=== PATIENT | male | born 1965 | race Caucasian/White ===

== ENCOUNTER → 2018-11-17 | Day surgery (SDC) | payer OTHER ==
[~2018-11-17] MED LIST: AMLODIPINE-BEN1 EAC5 PO; ETHYL CHLORIDE MIST SPRAY 3.5OZ CAN TP ONE; GLIMEPIRIDE2 MG PO; LIDOCAINE HCL 2% LOCAL INJ 5 ML SDV VIAL INJ ONE; MIDAZOLAM HCL 5MG/ML 2ML VIAL ONE; ONDANSETRON HCL INJ 2MG/ML 2ML 2 MG/ML VIAL ONE; OR PHACO EYE KIT ONE; PREOP PHACO EYE KIT ONE; PROPOFOL IV EMULSION 10 MG/ML 20 ML VIAL ONE; SEVOFLURANE INHAL SOLN 250 ML PEN BTL ONE; prostate med PO
--- OUTSIDE RECORDS SUMMARY | 2018-11-17 09:20 | XMS REPORT | Encounter Summary ---
Author Organization Unknown Address [address] [place] [address] Phone [phone] Care Team Providers Care Benefits Analyst Name Role Phone Dr. Trisha Hernandez 3 [phone] Reason for Visit Benign essential hypertension; weight loss Instructions 1. Type 2 diabetes mellitus urinalysis, dipstick metformin 500 mg tablet diabetic nutrition education referral 2. Benign essential hypertension 3. Neck pain cyclobenzaprine 10 mg tablet 4. Anxiety alprazolam 0.5 mg tablet 5. Body mass index 25-29 - overweight learning about healthy weight Discussion Note: None recorded. Plan of Care Reminders Provider Appointments Est Patient 10/27/2018 9:00AM Charles Perera MD Lab Urinalysis, Dipstick 10/26/2018 [facility] ([facility] Diabetic Nutrition Education Referral 10/26/2018 Roxi Kumar RN (Charlie) (Accounting/Finance Tutor) Procedures None recorded. Surgeries None recorded. Imaging None recorded. Medications Name Start Date alprazolam 0.5 mg tablet TAKE 1/2 TO 1 TABLET BY MOUTH EVERY 12 HOURS NEEDED FOR ANXIETY amlodipine 5 mg-benazepril 20 mg capsule Take 1 capsule every day by oral route. Cialis 5 mg tablet TAKE 1 TABLET BY MOUTH EVERY DAY cyclobenzaprine 10 mg tablet TAKE 1 TABLET BY MOUTH EVERY NIGHT AT BEDTIME NEEDED FOR SPASM metformin 500 mg tablet Take 1 tablet twice a day by oral route. zolpidem 10 mg tablet take one tablet qhs prn insomnia Medications Administered None recorded. Vitals Height Weight BMI Blood Pressure 5 ft 5.5 in 163 lbs 26.7 kg/m2 94/72 mm[Hg] Lab Results None recorded. 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 Social History Smoking Status Never Smoker Past Encounters 10/26/2018 Type 2 Diabetes Mellitus; Benign Essential Hypertension; Neck Pain; Anxiety; Body Mass Index 25-29 - Overweight Charles Perera MD: [address] [facility], [address], [place] [address], Ph. 10/01/2018 Benign Essential Hypertension; Abdominal Pain; Anxiety; Insomnia; Neck Pain; Body Mass Index 25-29 - Overweight; Screening for Malignant Neoplasm of Prostate JAVIER Marcos: [address] [facility], [address], [place] [address], Ph. History of Present Illness Note:Concerned about recent weight loss, associated increase in urination and thirst. No NVD. Decrease in appetite. Brings recent labs, elevated BS and HgA1c. Review of Systems Comprehensive General Adult ROS, Diabetes F/U ROS Reported By: Patient Constitutional: Constitutional: weight loss (15 lbs) Cardiovascular: Cardiovascular: no chest pain, no SOB, no palpitations Respiratory: Respiratory: no wheezing, no shortness of breath Endocrine: Endocrine: no fatigue Extremities: Extremities: no edema Physical Exam Cardiology Exam Reported By: Patient Constitutional: General Appearance: well-nourished, well-developed. Level of Distress: comfortable Psychiatric: Mental Status: alert, normal affect. Orientation: oriented to time, place, and person. Insight: good judgment Eyes: Lids and Conjunctivae: non-injected, no discharge, no pallor Neck: Neck: supple, no masses. Carotid Arteries: no bruits, no thrills. Cervical Lymph Nodes: non tender, not enlarged, no palpable nodes. Thyroid: not enlarged, non tender Lungs: Respiratory Effort: unlabored. Auscultation: clear, no wheezing Cardiovascular: Rate And Rhythm: regular. Heart Sounds: normal S1, no rub, no gallop. Extremities: no cyanosis, no edema Skin: Inspection and Palpation: warm and dry. Nails: no clubbing
--- OUTSIDE RECORDS SUMMARY | 2018-11-17 09:20 | XMS REPORT | Encounter Summary ---
Author Organization Unknown Address [address] [place] [address] Phone [phone] Care Team Providers Care Statistical Analyst Name Role Phone Dr. Trisha Hernandez 3 [phone] Reason for Visit shortness of breath; nausea; sleep problems Instructions 1. Type 2 diabetes mellitus CMP, serum or plasma 2. Fatigue CBC w/ auto diff 3. Thyroid function tests abnormal T4, free, serum T3, free, serum or plasma TSH, serum or plasma 4. Screening for malignant neoplasm of colon colon cancer screening, stool 5. Abdominal pain US, abdomen, complete 6. Degeneration of cervical intervertebral disc physical therapy referral Tylenol-Codeine #3 300 mg-30 mg tablet Zanaflex 4 mg tablet Discussion Note: None recorded. Patient educational handouts: No information available. Plan of Care Reminders Provider Appointments None recorded. Lab CMP, Serum or Plasma 10/29/2018 [facility] CBC W/ Auto Diff 10/29/2018 [facility] T4, Free, Serum 10/29/2018 [facility] T3, Free, Serum or Plasma 10/29/2018 [facility] TSH, Serum or Plasma 10/29/2018 [facility] Colon Cancer Screening, Stool 10/29/2018 [facility] (Cologuard Orders Only) Referral Physical Therapy Referral 10/29/2018 [facility] Procedures None recorded. Surgeries None recorded. Imaging US, Abdomen, Complete 10/29/2018 [facility] Medications Name Start Date alprazolam 0.5 mg [...] tablet twice a day by oral route. Tylenol-Codeine #3 300 mg-30 mg tablet Take 1 tablet every 6-8 hours by oral route as needed. Zanaflex 4 mg tablet Take 1 tablet 3 times a day by oral route as needed. zolpidem 10 mg tablet take one tablet qhs prn insomnia Medications Administered None recorded. Vitals Height Blood Pressure 5 ft 5.5 in 100/88 mm[Hg] Lab Results Date Name Specimen Result Interpretation Description Value Range Status Address Urinalysis, Dipstick Color Color light yellow [facility] ([facility]: [address], [place] Color Appearance clear [facility] ([facility]: [address], [place] Color Glucose negative [facility] ([facility]: [address], [place] Color Bilirubin negative [facility] ([facility]: [address], [place] Color Ketones negative [facility] ([facility]: [address], [place] Color Specific [place] 1.005 [facility] ([facility]: [address], [place] Color Blood negative [facility] ([facility]: [address], [place] Color PH 5.0 [facility] ([facility]: [address], [place] Color Protein negative [facility] ([facility]: [address], [place] Color Urobilinogen 0.2 [facility] ([facility]: [address], [place] Color Nitrites negative [facility] ([facility]: [address], [place] Color Leukocytes negative [facility] ([facility]: [address], [place] Allergies Code Code System Name Reaction Severity Status Onset NKDA Problems Name Status Onset Date Source Benign Essential Hypertension Active 06/12/2012 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 Social History Smoking Status Never Smoker Past Encounters 10/29/2018 Type 2 Diabetes Mellitus; Fatigue; Thyroid Function Tests Abnormal; Screening for Malignant Neoplasm of Colon; Abdominal Pain; Degeneration of Cervical Intervertebral Disc Jameson Angeles MD: [address] [facility], [address], [place] [address], Ph. 10/26/2018 Type 2 Diabetes Mellitus; Benign Essential Hypertension; Neck Pain; Anxiety; Body Mass Index 25-29 - Overweight Charles Perera MD: [address] [facility], [address], [place] [address], Ph. 10/01/2018 Benign Essential Hypertension; Abdominal Pain; Anxiety; Insomnia; Neck Pain; Body Mass Index 25-29 - Overweight; Screening for Malignant Neoplasm of Prostate JAVIER Marcos: [address] [facility], [address], [place] [address], Ph. History of Present Illness Note:3-4 am woke up nausea/vomiting - none since - constipated 2 weeks, now some diarrhea; no abdominal pain<div>
</div><div>lost 4# past 3 days</div><div>< br></div><div>no fever/chills</div><div>
</div><div>labs reviewed - Creatinine 1.7; metformin started 2 days ago; A1c 6.7; Glucose 160s; Tsh 4.5< /div><div>
</div><div>not started checking glucose</div><div>
</div><div>1 year lost appetite</div><div>
</div><div>lost 60# past 2 years ago - exercising; not activly trying to lose weight - loss of appetite</div><div>
< /div><div>stress with good friend committed suicide 2 weeks ago</div><div>
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 Physical Exam General Adult Exam (male) Reported By: Patient Constitutional: General Appearance: healthy-appearing. Level of Distress: NAD Psychiatric: Mental Status: active and alert, normal affect Lungs: Respiratory effort: no dyspnea. Auscultation: breath sounds normal Cardiovascular: Heart Auscultation: RRR, normal S1, normal S2. Neck vessels: no carotid bruits Abdomen: Inspection and Palpation: soft, non-distended, no CVA tenderness, LLQ tenderness, RLQ tenderness
--- OUTSIDE RECORDS SUMMARY | 2018-11-17 09:20 | XMS REPORT | Encounter Summary ---
Author Organization Unknown Address [address] [place] [address] Phone [phone] Care Team Providers Care Real Estate Assistant Name Role Phone Dr. Trisha Hernandez 3 [phone] Reason for Visit pre-op evaluation Instructions 1. Pre-surgery evaluation electrocardiogram 2. Insomnia eszopiclone 2 mg tablet 3. Anxiety alprazolam 0.5 mg tablet Discussion Note: None recorded. Patient educational handouts: No information available. Plan of Care Reminders Provider Appointments Est Patient 11/16/2018 12:15PM Charles Perera MD Lab None recorded. Referral None recorded. Procedures None recorded. Surgeries None recorded. Imaging Electrocardiogram 11/10/2018 [facility] ([facility]) [facility] Medications Name Start Date alprazolam 0.5 mg tablet TAKE 1/2 TO 1 TABLET BY MOUTH EVERY 12 HOURS NEEDED FOR ANXIETY amlodipine 5 mg-benazepril 20 mg capsule Take 1 capsule every day by oral route. Cialis 5 mg tablet TAKE 1 TABLET BY MOUTH EVERY DAY cyclobenzaprine 10 mg tablet TAKE 1 TABLET BY MOUTH EVERY NIGHT AT BEDTIME NEEDED FOR SPASM eszopiclone 2 mg tablet TAKE 1 TABLET BY MOUTH EVERY DAY AT BEDTIME NEEDED glimepiride 2 mg tablet Take 1 tablet every day by oral route. tamsulosin 0.4 mg capsule Take 1 capsule every day by oral route. Zanaflex 4 mg tablet Take 1 tablet 3 times a day by oral route as needed. Medications Administered None recorded. Vitals Height Weight BMI Blood Pressure 5 ft 5.5 in 160 lbs 26.2 kg/m2 104/82 mm[Hg] Lab Results Date Name Specimen Result Interpretation Description Value Range Status Address 10/29/2018 TSH, Serum or Plasma Normal Tsh 2.65 mIU/L 0.40-4.50 mIU/L [facility]: [address] [facility] [address], [place] 10/29/2018 CBC W/ Auto Diff High White Blood Cell Count 12.4 thousand/uL 3.8-10.8 thousand/uL [facility]: [address] Normal Red Blood Cell Count 4.37 million/uL 4.20-5.80 million/uL [facility]: [address] Low Hemoglobin 12.6 g/dL 13.2-17.1 g/dL [facility]: [address] [place] Low Hematocrit 35.7 % 38.5-50.0 % [facility]: [address] [place] Normal Mcv 81.7 fL 80.0-100.0 fL [facility]: [address] [place] Normal Mch 28.8 pg 27.0-33.0 pg [facility]: [address] [place] Normal Mchc 35.3 g/dL 32.0-36.0 g/dL [facility]: [address] [place] Normal Rdw 13.7 % 11.0-15.0 % [facility]: [address] High Platelet Count 447 thousand/uL 140-400 thousand/uL [facility]: [address] [place] Normal Mpv 10.5 fL 7.5-12.5 fL [facility]: [address] [place] Normal Absolute Neutrophils 6820 cells/uL 0078-2754 cells/uL [facility]: [address] [place] High Absolute Lymphocytes 4402 cells/uL 850-3900 cells/uL [facility]: [address] [place] Normal Absolute Monocytes 918 cells/uL 200-950 cells/uL [facility]: [address] [place] Normal Absolute Eosinophils 186 cells/uL 15-500 cells/uL [facility]: [address] [place] Normal Absolute Basophils 74 cells/uL 0-200 cells/uL [facility]: [address] [place] Normal Neutrophils 55 % [facility]: [address] [place] Normal Lymphocytes 35.5 % [facility]: [address] [place] Normal Monocytes 7.4 % [facility]: [address], [place] Normal Eosinophils 1.5 % [facility]: [address], [place] Normal Basophils 0.6 % [facility]: [address] [place] 10/29/2018 CMP, Serum or Plasma High Glucose 129 mg/dL 65-99 mg/dL [facility]: [address], [place] Normal Urea Nitrogen (BUN) 24 mg/dL 7-25 mg/dL [facility]: [address] [place] High Creatinine 1.83 mg/dL 0.70-1.33 mg/dL [facility]: [address] [place] Low eGFR Non-afr. [place] Islander 42 mL/min/1.73m2 > or=60 mL/min/1.73m2 [facility]: [address] [place] Low eGFR 48 mL/min/1.73m2 > or=60 mL/min/1.73m2 [facility]: [address] [place] Normal BUN/creatinine Ratio 13 (calc) 6-22 (calc) [facility] [address] [facility] Sodium 140 mmol/L 135-146 mmol/L [facility]: [address] [facility] Normal Potassium 4.9 mmol/L 3.5-5.3 mmol/L [facility]: [address] [facility] Normal Chloride 102 mmol/L 98-110 mmol/L [facility]: [address] [facility] Normal Carbon Dioxide 23 mmol/L 20-32 mmol/L [facility]: [address] [place] High Calcium 10.6 mg/dL 8.6-10.3 mg/dL [facility]: [address] [facility] Normal Protein, Total 7.5 g/dL 6.1-8.1 g/dL [facility]: [address] [facility] Normal Albumin 4.9 g/dL 3.6-5.1 g/dL [facility]: [address], [place] Normal Globulin 2.6 g/dL (calc) 1.9-3.7 g/dL (calc) [facility]: [address], [place] Normal Albumin/globulin Ratio 1.9 (calc) 1.0-2.5 (calc) [facility]: [address] Normal Bilirubin, Total 0.7 mg/dL 0.2-1.2 mg/dL [facility]: [address] [facility], [place] Normal Alkaline Phosphatase 77 U/L 40-115 U/L [facility]: [address] [place] [address], [place] Low Ast 9 U/L 10-35 U/L [facility]: [address] [place] [address], [place] Low Alt 6 U/L 9-46 U/L [facility]: [address] [place] [address], [place] 10/29/2018 T4, Free, Serum Normal T4, Free 1.2 NG/dL 0.8-1.8 NG/dL [facility]: [address] [facility], [place] 10/29/2018 T3, Free, Serum or Plasma Normal T3, Free 3.1 pg/mL 2.3- 4.2 pg/mL [facility]: [address] [place] [address], [place] Urinalysis, Dipstick Color Color light yellow [facility] ([facility]: [address] [facility] [address], [place] Color Appearance clear [facility] ([facility]) [facility]: [address] [place] Color Glucose negative [facility]: [address], [place] Color Bilirubin negative [facility]: [address] [facility] [address], [place] Color Ketones negative [facility]: [address] [facility] [address], [place] Color Specific [place] 1.005 [facility] ([facility]: [address] [facility] [address], [place] Color Blood negative [facility]: [address] [facility] [address], [place] Color PH 5.0 [facility]: [address] [facility] [address], [place] Color Protein negative [facility]: [address] [facility] [address], [place] Color Urobilinogen 0.2 [facility]: [address] [facility] [address], [place] Color Nitrites negative [facility] ([facility]) [facility]: [address] [facility] [address], [place] Color Leukocytes negative [facility] ([facility]) [facility]: [address] [facility] [address], [place] Allergies Code Code System Name Reaction Severity Status Onset NKDA Problems Name Status Onset Date Source Benign Essential Hypertension Active 06/12/2012 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 History Insomnia Active 11/23/2013 History Anxiety State Active 01/21/2014 History Overweight Active 08/18/2018 Type 2 Diabetes Mellitus Active 10/29/2018 Degeneration of Intervertebral Disc Active 10/29/2018 Diabetic Renal Disease Active 10/30/2018 Chronic Kidney Disease Stage 3 Active 10/30/2018 Cataract Active 11/10/2018 Procedures Date Name Performed by 07/07/2014 Back Surgery Information not available 10/23/2018 MRI, Cervical Spine, W/o Contrast [facility] [address] [facility] [address] [place], [place] [phone] (Work Place) 10/29/2018 US, Abdomen, [facility] [address] [place], [place] [phone] (Work Place) 11/10/2018 Electrocardiogram [facility] ([facility]) [facility] [address] [facility] [address] [place] [address] (Work Place) Vaccine List None recorded. Social History Smoking Status Never Smoker Past Encounters 11/10/2018 Pre-surgery Evaluation; Insomnia; Anxiety Loren Little MD: [address] [facility], [facility] [address], [place] [address], Ph. 10/29/2018 Type 2 Diabetes Mellitus; Fatigue; Thyroid Function Tests Abnormal; Screening for Malignant Neoplasm of Colon; Abdominal Pain; Degeneration of Cervical Intervertebral Disc Jameson Angeles MD: [address] [facility], [facility] [address], [place] [address], Ph. 10/26/2018 Type 2 Diabetes Mellitus; Benign Essential Hypertension; Neck Pain; Anxiety; Body Mass Index 25-29 - Overweight Charles Perera MD: [address] [facility], [address], [place] [address], Ph. History of Present Illness Note:Patient is here for pre-op for cataract surgery that is scheduled for 11/17/18. 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 Patient is fairly active, but hasn't been so recently due to vision changes. Patient denies having any chest pain and he does have some problems with breathing when he has panic attacks. Last EKG was 10 years ago.<div>
< /div><div>He states that his anxiety has been worsening and he would like to switch from Ambien to Lunesta. He states that he has tried Zoloft in the past which didn't help.</div> Review of Systems Comprehensive General Adult ROS Reported By: Patient Constitutional: Constitutional: no fever, no night sweats Cardiovascular: Cardiovascular: no chest pain, no palpitations Respiratory: Respiratory: no cough, no shortness of breath Gastrointestinal: Gastrointestinal: no abdominal pain, no nausea, no vomiting Musculoskeletal: Musculoskeletal: no swelling in the extremities Neurologic: Neurologic: no dizziness, no headaches Endocrine: Endocrine: no fatigue Physical Exam General Adult Exam (male) Reported By: Patient Constitutional: General Appearance: healthy-appearing, well-nourished. Level of Distress: NAD Psychiatric: Mental Status: active and alert, normal affect Head: Head: normocephalic Eyes: Lids and Conjunctivae: non-injected ENMT: Ears: no lesions on external ear. Hearing: no hearing loss. Nose: no lesions on external nose Neck: Neck: supple Lungs: Respiratory effort: no dyspnea. Auscultation: breath sounds normal Cardiovascular: Heart Auscultation: RRR, normal S1, normal S2 Neurologic: Gait and Station: normal gait
--- OUTSIDE RECORDS SUMMARY | 2018-11-17 09:20 | XMS REPORT | Encounter Summary ---
Author Organization Unknown Address [address] [place] [address] Phone [phone] Care Team Providers Care Market Master Name Role Phone Dr. Trisha Hernandez 3 [phone] Reason for Visit constipation Instructions 1. Benign essential hypertension amlodipine 5 mg-benazepril 20 mg capsule 2. Abdominal pain 3. Anxiety alprazolam 0.5 mg tablet 4. Insomnia eszopiclone 2 mg tablet 5. Neck pain cyclobenzaprine 10 mg tablet physical therapy referral Tylenol-Codeine #3 300 mg-30 mg tablet 6. Body mass index 25-29 - overweight learning about healthy weight 7. Screening for malignant neoplasm of prostate Discussion Note: None recorded. Plan of Care Reminders Provider Appointments Est Patient 10/19/2018 10:15AM Charles Perera MD Lab None recorded. Referral Physical Therapy Referral 10/01/2018 Procedures None recorded. Surgeries None recorded. Imaging [...] BY MOUTH EVERY DAY AT BEDTIME NEEDED Mobic 7.5 mg tablet Take 1 tablet every day by oral route as needed. tramadol 50 mg tablet Take 1 tablet every 6 hours by oral route. prn pain. do not combine with alcohol or sleeping pills Tylenol-Codeine #3 300 mg-30 mg tablet Take 1 tablet every 6-8 hours by oral route as needed. zolpidem 10 mg tablet take one tablet qhs prn insomnia Medications Administered None recorded. Vitals Height Weight BMI Blood Pressure 5 ft 5.5 in 163 lbs 26.7 kg/m2 (1) 150/100 mm[Hg] (2) 150/102 mm[Hg] Lab Results None recorded. 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 Social History Smoking Status Never Smoker Past Encounters 10/01/2018 Benign Essential Hypertension; Abdominal Pain; Anxiety; Insomnia; Neck Pain; Body Mass Index 25-29 - Overweight; Screening for Malignant Neoplasm of Prostate JAVIER Marcos: [address] [facility], [address], [place] [address], Ph. History of Present Illness Note:Pt c/o persistent neck pain radiating down his arm. Pt was put on meloxicam and Flexeril. Those meds haven't been working. Hasn't done MRI which was ordered a month ago. <div>Pt c/o constipation, took Senokot OTC which helped. Has been having normal BM's since then but the abdomen feels raw. </div><div> Elevated BP. Used to be on BP meds, was taken off them because it was great. Now it's been running high again. </div><div>Pt asking for refills on Xanax and Ambien or Lunesta. </div><div>Pt also asking for refills on pain meds for his neck. </div> Review of Systems Comprehensive General Adult ROS Reported By: Patient Constitutional: Constitutional: no fever Cardiovascular: Cardiovascular: no chest pain, no palpitations, no lightheadedness Respiratory: Respiratory: no shortness of breath Gastrointestinal: Gastrointestinal: no abdominal pain, no nausea, no vomiting, no constipation, no diarrhea Musculoskeletal: Musculoskeletal: no swelling in the extremities Neurologic: Neurologic: no numbness, no dizziness, no headaches Notes: denies ROS except for what's noted in HPI Physical Exam General Adult Exam (male) Reported By: Patient Constitutional: General Appearance: healthy-appearing. Level of Distress: NAD Psychiatric: Orientation: to time, to place, to person Lungs: Respiratory effort: no dyspnea. Auscultation: breath sounds normal Cardiovascular: Heart Auscultation: RRR, normal S1, normal S2 Abdomen: Bowel Sounds: normal. Inspection and Palpation: soft, non-distended, no tenderness, no CVA tenderness Neurologic: Cranial Nerves: grossly intact
--- OUTSIDE RECORDS SUMMARY | 2018-11-17 09:20 | XMS REPORT | Encounter Summary ---
Author Organization Unknown Address [address] [place] [address] Phone [phone] Care Team Providers Care Floor Cashier Name Role Phone Dr. Charles Perera 3 [phone] Reason for Visit neck pain; shoulder pain Instructions 1. Neck pain XR, cervical spine, 2 or 3 view cyclobenzaprine 10 mg tablet Mobic 7.5 mg tablet 2. Cervical radiculopathy MRI, cervical spine, w/o contrast 3. Body mass index 25-29 - overweight learning about healthy weight 4. Anxiety alprazolam 0.5 mg tablet Discussion Note: None recorded. Plan of Care Reminders Provider Appointments Est Patient 09/07/2018 11:00AM Charles Perera MD Lab None recorded. Referral None recorded. Procedures None recorded. Surgeries None recorded. Imaging XR, Cervical Spine, 2 or 3 View 08/25/2018 [facility] MRI, Cervical Spine, W/o Contrast 08/25/2018 [facility] Medications Name Start Date alprazolam 0.5 mg tablet TAKE 1/2 TO 1 TABLET BY MOUTH EVERY 12 HOURS NEEDED FOR ANXIETY Cialis 5 mg tablet TAKE 1 TABLET BY MOUTH EVERY DAY cyclobenzaprine 10 mg tablet take one tablet qhs prn spasm eszopiclone 2 mg tablet TAKE 1 TABLET BY MOUTH EVERY DAY AT BEDTIME NEEDED Medrol (Chuy) 4 mg tablets in a dose pack Take as directed per instructions in pack Mobic 7.5 mg tablet Take 1 tablet every day by oral route as needed. zolpidem 10 mg tablet take one tablet qhs prn insomnia Medications Administered None recorded. Vitals Height Weight BMI Blood Pressure 5 ft 5.5 in 172.2 lbs 28.2 kg/m2 (1) 160/102 mm[Hg] (2) 148/102 mm[Hg] Lab Results None recorded. 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 Radiology [facility] [address] [place] [address] (Work Place) 08/25/2018 MRI, Cervical Spine, W/o Contrast [facility] [address] [place], [place] [id number] (Work Place) Vaccine List None recorded. Social History Smoking Status Never Smoker Past Encounters 08/25/2018 Neck Pain; Cervical Radiculopathy; Body Mass Index 25-29 - Overweight; Anxiety Gurmeet Prince MD: [address] [place] [address], [address], [place] [address], Ph. 08/18/2018 Shoulder Pain; Insomnia; Overweight Loren Little MD: [address] [place] [address], [address], [place] [address], Ph. History of Present Illness Note:here for follow up on neck pain going down left arm<div>sx for 3 weeks</div ><div>no injury</div><div>pain with movement</div><div>no cp, no sob, no fever, no rash</div><div>no association with exertion</div> Review of Systems Comprehensive General Adult ROS Reported By: Patient Constitutional: Constitutional: no fever, no night sweats Cardiovascular: Cardiovascular: no chest pain, no palpitations Respiratory: Respiratory: no cough, no shortness of breath Gastrointestinal: Gastrointestinal: no abdominal pain, no nausea, no vomiting Musculoskeletal: Musculoskeletal: no swelling in the extremities, arthralgias/joint pain Neurologic: Neurologic: no weakness, no numbness, no dizziness, no headaches, no tremor Endocrine: Endocrine: no fatigue Physical Exam General Adult Exam (male) Reported By: Patient Constitutional: General Appearance: healthy-appearing, well-nourished. Level of Distress: NAD Psychiatric: Mental Status: active and alert, normal affect Head: Head: normocephalic Neck: Neck: supple Lungs: Respiratory effort: no dyspnea. Auscultation: breath sounds normal Cardiovascular: Heart Auscultation: RRR, normal S1, normal S2 Musculoskeletal:: Joints, Bones, and Muscles: tenderness; cervical spine tenderness and left paraspinal muscle tenderness Neurologic: Gait and Station: normal gait. Reflexes: DTRs 2+ bilaterally throughout. Coordination and Cerebellum: no tremor
--- OUTSIDE RECORDS SUMMARY | 2018-11-17 09:20 | XMS REPORT ---
Author Organization Unknown Address [address] [place] [address] Phone [phone] Care Team Providers Care Eeg Technician Name Role Phone Perera, Charles K Unavailable Unavailable Allergies Code Code System Name Reaction Severity Status Onset No Known Allergies Deactivated NKDA Medications Name Status Start Date Stop Date amlodipine 10 mg-benazepril 40 mg capsule Completed 09/22/2017 Cialis 5 mg tablet TAKE 1 TABLET BY MOUTH EVERY DAY Active Not available hydrochlorothiazide 25 mg tablet Completed 06/24/2017 Lotrel 5 mg-20 mg capsule Take 1 capsule every day by oral route. Active Not available Lunesta 2 mg tablet Take 1 tablet every day by oral route at bedtime. Active Not available methocarbamol 750 mg tablet Active Not available Mobic 7.5 mg tablet Take 1 tablet every day by oral route as needed. Active Not available promethazine 25 mg tablet Take 1 tablet every 6 hours by oral route. Active Not available Robaxin-750 Completed 03/15/2016 Tylenol-Codeine #3 300 mg-30 mg tablet Take 1 tablet every 6-8 hours by oral route as needed. Active Not available Xanax 0.5 mg tablet Take 1/2 -1 po every 12 hours as needed for anxiety Active Not available Zoloft 100 mg tablet Take 1 tablet every day by oral route. 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 Past Encounters 09/26/2017 Rib Pain; Anxiety State Gurmeet Prince MD: [address] [facility], [address], [place] [address], Ph. 09/22/2017 Rib Pain; Insomnia; Body Mass Index 25-29 - Overweight Gurmeet Prince MD: [address] [facility], [address], [place] [address], Ph. 06/24/2017 Benign Essential Hypertension; Anxiety State Gurmeet Prince MD: [address] [facility], [address], [place] [address], Ph. 12/20/2016 Benign Essential Hypertension; Anxiety State; Low Back Pain; Insomnia; Impotence of Organic Origin Charles Perera MD: [address] [facility], [address], [place] [address], Ph. 08/23/2016 Benign Essential Hypertension; Insomnia; Anxiety State; Impotence of Organic Origin Gurmeet Prinec MD: [address] [facility], [address], [place] [address], Ph. 03/15/2016 Impotence of Organic Origin; Benign Essential Hypertension; Insomnia; Anxiety State; Low Back Pain Kadie Kohler MD: [address] [facility], [address], [place] [address], Ph. Social History Smoking Status Never Smoker Vaccine List None recorded. Plan of Care Reminders Provider Appointments None recorded. Lab None recorded. Referral None recorded. Procedures None recorded. Surgeries None recorded. Imaging None recorded. Vitals 09/26/2017 02:15PM Est Patient Height Weight BMI Blood Pressure 5 ft 5.5 in 171.6 lbs 28.1 kg/m2 130/82 mm[Hg] 09/22/2017 03:00PM Est Patient Height Weight BMI Blood Pressure 5 ft 5.5 in 179 lbs 29.3 kg/m2 124/70 mm[Hg] 06/24/2017 02:45PM Est Patient Height Weight BMI Blood Pressure 5 ft 5.5 in 193 lbs 31.6 kg/m2 115/70 mm[Hg] 12/20/2016 02:00PM Est Patient Height Weight BMI Blood Pressure 5 ft 5.5 in 218 lbs 35.7 kg/m2 114/78 mm[Hg] 08/23/2016 02:00PM Est Patient Height Weight BMI Blood Pressure 5 ft 5.5 in 230 lbs 37.7 kg/m2 150/86 mm[Hg] 03/15/2016 02:15PM Est Patient Height Weight BMI Blood Pressure 5 ft 5.5 in 227.2 lbs 37.2 kg/m2 151/93 mm[Hg] 06/06/2015 Height Weight BMI 5 ft 5.5 in 215 lbs 35.23 kg/m2 06/06/2015 Blood Pressure 126/92 mm[Hg] 11/21/2014 Height Weight BMI Blood Pressure 5 ft 5.5 in 193 lbs 31.63 kg/m2 104/70 mm[Hg] 11/04/2014 Height Weight BMI Blood Pressure 5 ft 5.5 in 197.6 lbs 32.38 kg/m2 118/80 mm[Hg] 09/05/2014 Height Weight BMI Blood Pressure 5 ft 5.5 in 205 lbs 33.59 kg/m2 100/64 mm[Hg] 06/23/2014 Height Weight BMI Blood Pressure 5 ft 5.5 in 201.4 lbs 33.00 kg/m2 128/88 mm[Hg] 05/10/2014 Height Weight BMI Blood Pressure 5 ft 5.5 in 208 lbs 34.09 kg/m2 120/80 mm[Hg] 01/21/2014 Height Weight BMI Blood Pressure 5 ft 5.5 in 194 lbs 31.79 kg/m2 138/82 mm[Hg] 12/09/2013 Height Weight BMI Blood Pressure 5 ft 5.5 in 196 lbs 32.12 kg/m2 120/82 mm[Hg] 11/23/2013 Height Weight BMI Blood Pressure 5 ft 5.5 in 192 lbs 31.46 kg/m2 120/78 mm[Hg] 08/20/2013 Height Weight BMI Blood Pressure 5 ft 5.5 in 202 lbs 33.10 kg/m2 130/78 mm[Hg] 05/24/2013 Blood Pressure 120/80 mm[Hg] 05/24/2013 Height Weight BMI 5 ft 5.5 in 211 lbs 34.57 kg/m2 04/22/2013 Height Weight BMI Blood Pressure 5 ft 5.5 in 210.4 lbs 34.48 kg/m2 140/98 mm[Hg] 02/09/2013 Height Weight BMI Blood Pressure 5 ft 5.5 in 206 lbs 33.76 kg/m2 124/86 mm[Hg] 12/25/2012 Height Weight BMI 5 ft 5.5 in 204 lbs 33.43 kg/m2 12/25/2012 Blood Pressure 110/86 mm[Hg] 12/03/2012 Height Weight BMI Blood Pressure 5 ft 5.5 in 205.2 lbs 33.62 kg/m2 128/80 mm[Hg] 09/01/2012 Height Weight BMI Blood Pressure 5 ft 5.5 in 208 lbs 34.08 kg/m2 140/80 mm[Hg] 06/22/2012 Height Weight BMI Blood Pressure 5 ft 5.5 in 218 lbs 35.72 kg/m2 118/74 mm[Hg] 06/12/2012 Height Weight BMI Blood Pressure 5 ft 5.5 in 217 lbs 35.56 kg/m2 160/105 mm[Hg]
--- OUTSIDE RECORDS SUMMARY | 2018-11-17 09:20 | XMS REPORT | Encounter Summary ---
Author Organization Unknown Address [address] [place] [address] Phone [phone] Care Team Providers Care Eye Surgeon Name Role Phone Dr. Charles Perera 3 [phone] Reason for Visit Left arm pain Instructions 1. Shoulder pain Medrol (Chuy) 4 mg tablets in a dose pack methocarbamol 750 mg tablet 2. Insomnia zolpidem 10 mg tablet 3. Overweight Discussion Note: None recorded. Patient educational handouts: No information available. Plan of Care Reminders Provider Appointments Est Patient 09/07/2018 11:00AM Charles ePrera MD Lab None recorded. Referral None recorded. Procedures None recorded. Surgeries None recorded. Imaging None recorded. Medications Name Start Date alprazolam 0.5 mg tablet TAKE 1/2 TO 1 TABLET BY MOUTH EVERY 12 HOURS NEEDED FOR ANXIETY Cialis 5 mg tablet TAKE 1 TABLET BY MOUTH EVERY DAY eszopiclone 2 mg tablet TAKE 1 TABLET BY MOUTH EVERY DAY AT BEDTIME NEEDED Medrol (Chuy) 4 mg tablets in a dose pack Take as directed per instructions in pack methocarbamol 750 mg tablet TAKE 1 TABLET BY MOUTH EVERY 4 HOURS zolpidem 10 mg tablet take one tablet qhs prn insomnia Medications Administered None recorded. Vitals Height Weight BMI Blood Pressure 5 ft 5.5 in 172.6 lbs 28.3 kg/m2 136/88 mm[Hg] Lab Results None recorded. Allergies Code [...] History Smoking Status Never Smoker Past Encounters 08/18/2018 Shoulder Pain; Insomnia; Overweight Loren Little MD: [address] [facility], [address], [place] [address], Ph. History of Present Illness Insomnia Reported By: Patient Notes: Patient rotates Lunesta and Zolpidem Musculoskeletal Pain Reported By: Patient HPI: Location: left shoulder. Severity: same. Duration: ; 2 weeks. Timing: intermittent, pain at night. Context: trauma; He thinks that he may have lifted something too heavy. Medications ; Muscle relaxant and icy hot Review of Systems Comprehensive General Adult ROS Reported By: Patient Constitutional: Constitutional: no fever, no night sweats Cardiovascular: Cardiovascular: no chest pain, no palpitations Respiratory: Respiratory: no cough, no shortness of breath Gastrointestinal: Gastrointestinal: no abdominal pain, no nausea, no vomiting Musculoskeletal: Musculoskeletal: no swelling in the extremities, arthralgias/joint pain Neurologic: Neurologic: no dizziness, no headaches Endocrine: Endocrine: no fatigue Physical Exam General Adult Exam (male) Reported By: Patient Constitutional: General Appearance: healthy-appearing, well-nourished. Level of Distress: NAD Psychiatric: Mental Status: active and alert, normal affect Head: Head: normocephalic Eyes: Lids and Conjunctivae: non-injected Neck: Neck: supple Lungs: Respiratory effort: no dyspnea. Auscultation: breath sounds normal Cardiovascular: Heart Auscultation: RRR, normal S1, normal S2 Musculoskeletal:: Joints, Bones, and Muscles: tenderness; cervical spine tenderness and left paraspinal muscle tenderness Neurologic: Gait and Station: normal gait
--- OUTSIDE RECORDS SUMMARY | 2018-11-17 09:20 | XMS REPORT | Encounter Summary ---
Author Organization Unknown Address [address] [place] [address] Phone [phone] Care Team Providers Care Radioactive Waste Disposal Dispatcher Name Role Phone Dr. Trisha Hernandez 3 [phone] Reason for Visit pre-op evaluation Instructions 1. Pre-surgery evaluation electrocardiogram 2. Insomnia eszopiclone 2 mg tablet 3. Anxiety alprazolam 0.5 mg tablet Discussion Note: None recorded. Patient educational handouts: No information available. Plan of Care Reminders Provider Appointments Est Patient 11/16/2018 12:15PM Charles Perera MD Lab None recorded. Referral None recorded. Procedures None recorded. Surgeries None recorded. Imaging Electrocardiogram 11/10/2018 [facility] ([facility]) [facility] Medications Name Start Date alprazolam 0.5 mg [...] ft 5.5 in 160 lbs 26.2 kg/m2 Lab Results Date Name Specimen Result Interpretation Description Value Range Status Address 10/29/2018 TSH, Serum or Plasma Normal Tsh 2.65 mIU/L 0.40-4.50 mIU/L [facility] [place] 10/29/2018 CBC W/ Auto Diff High White Blood Cell Count 12.4 thousand/uL 3.8-10.8 thousand/uL Final [facility]: [address] Normal Red Blood Cell Count 4.37 million/uL 4.20-5.80 million/uL Final [facility]: [address] Low Hemoglobin 12.6 g/dL 13.2-17.1 g/dL Final [facility]: [address] [place] Low Hematocrit 35.7 % 38.5-50.0 % Final [facility]: [address], [place] Normal Mcv 81.7 fL 80.0-100.0 fL Final [facility]: [address] [place] Normal Mch 28.8 pg 27.0-33.0 pg Final [facility]: [address] [place] Normal Mchc 35.3 g/dL 32.0-36.0 g/dL Final [facility]: [address] [place] Normal Rdw 13.7 % 11.0-15.0 % Final [facility]: [address] High Platelet Count 447 thousand/uL 140-400 thousand/uL Final [facility]: [address] [place] Normal Mpv 10.5 fL 7.5-12.5 fL Final [facility]: [address] Normal Absolute Neutrophils 6820 cells/uL 4250-1645 cells/uL Final [facility]: [address] High Absolute Lymphocytes 4402 cells/uL 850-3900 cells/uL Final [facility]: [address] [place] Normal Absolute Monocytes 918 cells/uL 200-950 cells/uL Final [facility]: [address] [place] Normal Absolute Eosinophils 186 cells/uL 15-500 cells/uL Final [facility]: [address] [place] Normal Absolute Basophils 74 cells/uL 0-200 cells/uL Final [facility]: [address] [place] Normal Neutrophils 55 % Final [facility]: [address] [place] Normal Lymphocytes 35.5 % Final [facility]: [address] [place] Normal Monocytes 7.4 % Final [facility]: [address] [place] Normal Eosinophils 1.5 % Final [facility] [address] [facility] Basophils 0.6 % Final [facility]: [address] [place] 10/29/2018 CMP, Serum or Plasma High Glucose 129 mg/dL 65-99 mg/dL Final [facility]: [address] [facility] Urea Nitrogen (BUN) 24 mg/dL 7-25 mg/dL Final [facility] [address] [facility] High Creatinine 1.83 mg/dL 0.70-1.33 mg/dL Final [facility]: [address] Low eGFR Non-afr. Filipino 42 mL/min/1.73m2 > or=60 mL/min/1.73m2 Final [facility]: [address] [place] [address] Low eGFR 48 mL/min/1.73m2 > or=60 mL/min/1.73m2 Final [facility]: [address] [place] [address] Normal BUN/creatinine Ratio 13 (calc) 6-22 (calc) Final [facility]: [address] [facility] Normal Sodium 140 mmol/L 135-146 mmol/L Final [facility]: [address] [place] [address] Normal Potassium 4.9 mmol/L 3.5-5.3 mmol/L Final [facility]: [address] [facility] Normal Chloride 102 mmol/L 98-110 mmol/L Final [facility]: [address] [place] [address] Normal Carbon Dioxide 23 mmol/L 20-32 mmol/L Final [facility]: [address] [facility] High Calcium 10.6 mg/dL 8.6-10.3 mg/dL Final [facility]: [address] [facility] Normal Protein, Total 7.5 g/dL 6.1-8.1 g/dL Final [facility]: [address] Normal Albumin 4.9 g/dL 3.6-5.1 g/dL Final [facility]: [address]onso, [place] Normal Globulin 2.6 g/dL (calc) 1.9-3.7 g/dL (calc) Final [facility]: [address], [place] Normal Albumin/globulin Ratio 1.9 (calc) 1.0-2.5 (calc) Final [facility]: [address], [place] Normal Bilirubin, Total 0.7 mg/dL 0.2-1.2 mg/dL Final [facility]: [address], [place] Normal Alkaline Phosphatase 77 U/L 40-115 U/L Final [facility]: [address], [place] Low Ast 9 U/L 10-35 U/L Final [facility]: [address] [facility], [place] Low Alt 6 U/L 9-46 U/L Final [facility]: [address] Alonso, [place] 10/29/2018 T4, Free, Serum Normal T4, Free 1.2 NG/dL 0.8-1.8 NG/dL Final [facility]: [address] Alonso, [place] 10/29/2018 T3, Free, Serum or Plasma Normal T3, Free 3.1 pg/mL 2.3- 4.2 pg/mL Final [facility]: [address] [facility], [place] Urinalysis, Dipstick Color Color light yellow [facility] ([facility]: [address] [facility] [address], [place] Color Appearance clear [facility] ([facility]: [address], [place] Color Glucose negative [facility] ([facility]) [facility]: [address], [place] Color Bilirubin negative [facility] ([facility]) [facility]: [address], [place] Color Ketones negative [facility] ([facility]: [address], [place] Color Specific [place] 1.005 [facility] ([facility]: [address], [place] Color Blood negative [facility] ([facility]: [address], [place] Color PH 5.0 [facility] ([facility]: [address], [place] Color Protein negative [facility] ([facility]) [facility]: [address] [facility] [address], [place] Color Urobilinogen 0.2 [facility] ([facility]) [facility]: [address] [facility] [address], [place] Color Nitrites negative [facility] ([facility]) [facility]: [address] [facility] [address], [place] Color Leukocytes negative [facility] ([facility]) [facility]: [address] [facility] [address], [place] Allergies Code Code System Name Reaction Severity [...] available 10/23/2018 MRI, Cervical Spine, W/o Contrast [facility] [address] [facility] 100 [place], [place] [id number] (Work Place) 10/29/2018 US, Abdomen, [facility] [address] [facility] [address] [place], [place] [id number] (Work Place) 11/10/2018 Electrocardiogram [facility] ([facility]) [facility] [address] [facility] 200 [place] [address] (Work Place) Vaccine List None recorded. Social History Smoking Status Never Smoker Past Encounters 11/10/2018 Pre-surgery Evaluation; Insomnia; Anxiety Loren Little MD: [address] [facility] [address], [place] [address], Ph. 10/29/2018 Type 2 Diabetes Mellitus; Fatigue; Thyroid Function Tests Abnormal; Screening for Malignant Neoplasm of Colon; Abdominal Pain; Degeneration of Cervical Intervertebral Disc Jameson Angeles MD: [address] [facility] [address], [place] [address], Ph. 10/26/2018 Type 2 Diabetes Mellitus; Benign Essential Hypertension; Neck Pain; Anxiety; Body Mass Index 25-29 - Overweight Charles Perera MD: [address] [facility], [address], [place] [address], Ph. History of Present Illness Note:Patient is [...]
--- OUTSIDE RECORDS SUMMARY | 2018-11-17 09:20 | XMS REPORT | Encounter Summary ---
Author Organization Unknown Address [address] [place] [address] Phone [phone] Care Team Providers Care Staffing Coordinator Name Role Phone Dr. Trisha Hernandez 3 [phone] Reason for Visit Benign essential hypertension; weight [...] Charles Perera MD Lab Urinalysis, Dipstick 10/26/2018 [facility] ([facility]) [facility] Referral Diabetic Nutrition Education Referral 10/26/2018 Roxi Kumra RN (Charlie) (Gas Furnace Installer) Procedures None recorded. Surgeries None recorded. Imaging [...] lbs 26.7 kg/m2 94/72 mm[Hg] Lab Results Date Name Specimen Result Interpretation Description Value Range Status Address Urinalysis, Dipstick Color Color light yellow [facility] ([facility]) [facility]: [address] [facility] [address], [place] Color Appearance clear [facility] ([facility]) [facility]: [address] [facility] [address], [place] Color Glucose negative [facility]: [address] [place] Color Bilirubin negative [facility]: [address] [facility] [address] [place] Color Ketones negative [facility] ([facility]: [address] [facility] [address], [place] Color Specific [place] [address] [facility] ([facility]: [address] [facility] [address], [place] Color Blood negative [facility] ([facility]: [address] [facility] [address] [place] Color PH [address].0 [facility] ([facility]: [address], [place] Color Protein negative [facility] ([facility]: [address] [facility] [address], [place] Color Urobilinogen 0.2 [facility] ([facility]) [facility]: [address] [facility] [address], [place] Color Nitrites negative [facility] ([facility]) [facility]: [address] [facility] [address], [place] Color Leukocytes negative [facility] ([facility]) [facility]: [address], [place] Allergies Code Code System Name Reaction Severity Status Onset NKDA Problems Name Status Onset Date Source Benign Essential Hypertension Active 06/12/2012 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 Social History Smoking Status Never Smoker Past Encounters 10/26/2018 Type 2 Diabetes Mellitus; Benign Essential Hypertension; Neck Pain; Anxiety; Body Mass Index 25-29 - Overweight Charles Perera MD: [address], [facility] [address], [place] [address], Ph. 10/01/2018 Benign Essential Hypertension; Abdominal Pain; Anxiety; Insomnia; Neck Pain; Body Mass Index 25-29 - Overweight; Screening for Malignant Neoplasm of Prostate JAVIER Marcos: [address], [facility] [address], [place] [address], Ph. History of Present Illness Note:Concerned about [...]
[2018-11-17 13:50] VITALS: BP 110/81
== END | disposition home or self-care (01) ==
LOC: OR 09:14
PROVIDERS: ATTEND Ophthalmology
DX: H25.11 Age-related nuclear cataract, right eye (principal); I10 Essential (primary) hypertension; E11.9 Type 2 diabetes mellitus without complications; G47.00 Insomnia, unspecified; F41.9 Anxiety disorder, unspecified; Z79.84 Long term (current) use of oral hypoglycemic drugs
CPT/HCPCS: 66984; J2001; J2250; J2405; J2704

== ENCOUNTER → 2019-02-09 | Day surgery (SDC) | payer OTHER ==
[~2019-02-09] MED LIST changes: -ETHYL CHLORIDE MIST SPRAY 3.5OZ CAN TP ONE; -LIDOCAINE HCL 2% LOCAL INJ 5 ML SDV VIAL INJ ONE; -MIDAZOLAM HCL 5MG/ML 2ML VIAL ONE; -SEVOFLURANE INHAL SOLN 250 ML PEN BTL ONE
--- OUTSIDE RECORDS SUMMARY | 2019-02-09 10:03 | XMS REPORT | Encounter Summary ---
Author Organization Unknown Address [address] [place] [address] Phone [phone] Reason for Visit chronic conditions Instructions 1. Type 2 diabetes mellitus HbA1c (hemoglobin A1c), blood glimepiride 2 mg tablet 2. Benign essential hypertension CBC w/ auto diff CMP, serum or plasma amlodipine 5 mg-benazepril 20 mg capsule 3. Degeneration of cervical intervertebral disc Zanaflex 4 mg tablet 4. Insomnia 5. Body mass index 25-29 - overweight learning about healthy weight Discussion Note: None recorded. Plan of Care Reminders Provider Appointments None recorded. Lab HbA1C (Hemoglobin a1C), Blood 01/06/2019 [facility] CBC W/ Auto Diff 01/06/2019 [facility] CMP, Serum or Plasma 01/06/2019 [facility] Referral None recorded. Procedures None recorded. Surgeries None recorded. Imaging None recorded. Medications Name Start Date alprazolam 0.5 mg tablet 1 to 1 1/2 BY MOUTH EVERY 12 HOURS NEEDED FOR ANXIETY amlodipine 5 mg-benazepril 20 mg capsule TAKE 1 CAPSULE BY MOUTH EVERY DAY Cialis 5 mg tablet TAKE 1 TABLET BY MOUTH EVERY DAY cyclobenzaprine 10 mg tablet TAKE 1 TABLET BY MOUTH EVERY NIGHT AT BEDTIME NEEDED FOR SPASM eszopiclone 2 mg tablet TAKE 1 TABLET BY MOUTH EVERY DAY AT BEDTIME NEEDED glimepiride 2 mg tablet TAKE 1 TABLET BY MOUTH EVERY DAY tamsulosin 0.4 mg capsule Take 1 capsule every day by oral route. Zanaflex 4 mg tablet Take 1 tablet 3 times a day by oral route as needed. Medications Administered None recorded. Vitals Height Weight BMI Blood Pressure 5 ft 5.5 in 164 lbs 26.9 kg/m2 110/70 mm[Hg] Lab Results None recorded. Allergies Code [...] by 07/07/2014 Back Surgery Information not available Vaccine List None recorded. Social History Smoking Status Never Smoker Past Encounters 01/06/2019 Type 2 Diabetes Mellitus; Benign Essential Hypertension; Degeneration of Cervical Intervertebral Disc; Insomnia; Body Mass Index 25-29 - Overweight Gurmeet Prince MD: [address] [facility], [address], [place] [address], Ph. History of Present Illness Note:here for follow up on chronic conditions, DM, HTN and anxiety<div>doing well no current medications</div><div>no cp, no sob, no abd pain, no harmful thoughts</div> Review of Systems Comprehensive General Adult ROS Reported By: Patient Constitutional: Constitutional: no fever, no exercise intolerance Cardiovascular: Cardiovascular: no chest pain Respiratory: Respiratory: no cough, no shortness of breath Gastrointestinal: Gastrointestinal: no abdominal pain Musculoskeletal: Musculoskeletal: no muscle aches, no muscle weakness Neurologic: Neurologic: no weakness, no numbness Psychiatric: Psych: no depression, no anxiety Physical Exam Cardiology Exam Reported By: Patient Constitutional: Level of Distress: comfortable Psychiatric: Mental Status: alert, normal affect. Orientation: oriented to time, place, and person. Insight: good judgment Neck: Neck: supple, no masses. Thyroid: not enlarged Lungs: Respiratory Effort: unlabored. Auscultation: clear, no wheezing Cardiovascular: Rate And Rhythm: regular. Extremities: no cyanosis, no edema
--- OUTSIDE RECORDS SUMMARY | 2019-02-09 10:03 | XMS REPORT | Encounter Summary ---
Author Organization Unknown Address [address] [place] [id number] Phone [phone] Reason for Visit pre-op evaluation Instructions 1. Pre-surgery evaluation electrocardiogram CBC w/ auto diff PT/PTT, plasma 2. Cervical radiculopathy cyclobenzaprine 10 mg tablet 3. Leukocytosis 4. Body mass index 25-29 - overweight learning about healthy weight Discussion Note: None recorded. Plan of Care Patient Instructions RTC in 1 month. Reminders Provider Appointments None recorded. Lab CBC W/ Auto Diff 01/28/2019 [facility] PT/PTT, Plasma 01/28/2019 [facility] Referral None recorded. Procedures None recorded. Surgeries None recorded. Imaging Electrocardiogram 01/28/2019 [facility] ([facility] Medications Name Start Date alprazolam 0.5 mg tablet TAKE 1- 1.5 TABLET BY MOUTH EVERY 12 HOURS NEEDED amlodipine 5 mg-benazepril 20 mg capsule TAKE 1 CAPSULE BY MOUTH EVERY DAY Cialis 5 mg tablet TAKE 1 TABLET BY MOUTH EVERY DAY cyclobenzaprine 10 mg tablet TAKE 1 TABLET BY MOUTH EVERY NIGHT AT BEDTIME NEEDED FOR SPASM As needed for muscle spasm. Do not use with Zanaflex. eszopiclone 2 mg tablet TAKE 1 TABLET BY MOUTH EVERY DAY AT BEDTIME NEEDED glimepiride 2 mg tablet TAKE 1 TABLET BY MOUTH EVERY DAY tamsulosin 0.4 mg capsule Take 1 capsule every day by oral route. Medications Administered None recorded. Vitals Height Weight BMI Blood Pressure 5 ft 5.5 in 170 lbs 27.9 kg/m2 130/70 mm[Hg] Lab Results Date Name Specimen Result Interpretation Description Value Range Status Address 01/28/2019 Electrocardiogram Rate & Rhythm nl EKG [facility]: [address], [place] [facility]: [address], [place] Interval [facility] ([facility]: [address] [facility] [address] [place] Duration [facility] ([facility] [place]: [address] [facility] [address], [place] Interval [facility] ([facility]) [facility]: [address] [facility] [address], [place] 01/06/2019 HbA1C (Hemoglobin a1C), Blood Normal Hemoglobin a1C 5.2 % of total HGB <5.7 % of total HGB Final [facility]: [address], [place] EAG (mg/dL) 103 (calc) Final [facility]: [address], [place] EAG (mmol/L) 5.7 (calc) Final [facility]: [address], [place] 01/06/2019 CBC W/ Auto Diff High White Blood Cell Count 11.5 thousand/uL 3.8-10.8 thousand/uL Final [facility]: [address], [place] Normal Red Blood Cell Count 4.27 million/uL 4.20-5.80 million/uL Final [facility]: [address], [place] Low Hemoglobin 12.5 g/dL 13.2-17.1 g/dL Final [facility]: [address] [place] Low Hematocrit 37.2 % 38.5-50.0 % Final [facility]: [address] [place] Normal Mcv 87.1 fL 80.0-100.0 fL Final [facility]: [address], [place] Normal Mch 29.3 pg 27.0-33.0 pg Final [facility]: [address], [place] Normal Mchc 33.6 g/dL 32.0-36.0 g/dL Final [facility]: [address] [place] Normal Rdw 13.1 % 11.0-15.0 % Final [facility]: [address], [place] Normal Platelet Count 399 thousand/uL 140-400 thousand/uL Final [facility]: [address], [place] Normal Mpv 9.9 fL 7.5-12.5 fL Final [facility]: [address], [place] Normal Absolute Neutrophils 6843 cells/uL 7070-9587 cells/uL Final [facility]: [address] [place] Normal Absolute Lymphocytes 3243 cells/uL 850-3900 cells/uL Final [facility]: [address] [place] Normal Absolute Monocytes 794 cells/uL 200-950 cells/uL Final [facility]: [address] [place] High Absolute Eosinophils 552 cells/uL 15-500 cells/uL Final [facility]: [address] [place] Normal Absolute Basophils 69 cells/uL 0-200 cells/uL Final [facility]: [address] [place] Normal Neutrophils 59.5 % Final [facility]: [address] [place] Normal Lymphocytes 28.2 % Final [facility]: [address] [place] Normal Monocytes 6.9 % Final [facility]: [address] [place] Normal Eosinophils 4.8 % Final [facility]: [address] [place] Normal Basophils 0.6 % Final [facility]: [address] [place] 01/06/2019 CMP, Serum or Plasma High Glucose 100 mg/dL 65-99 mg/dL Final [facility]: [address] [place] High Urea Nitrogen (BUN) 26 mg/dL 7-25 mg/dL Final [facility]: [address] [place] [address] Normal Creatinine 1.29 mg/dL 0.70-1.33 mg/dL Final [facility]: [address] [place] [address] Normal eGFR Non-afr. Greek 64 mL/min/1.73m2 > or=60 mL/min/1.73m2 Final [facility]: [address] Normal eGFR 74 mL/min/1.73m2 > or=60 mL/min/1.73m2 Final [facility]: [address] [place] [address] Normal BUN/creatinine Ratio 20 (calc) 6-22 (calc) Final [facility] [address] [facility] Sodium 137 mmol/L 135-146 mmol/L Final [facility]: [address] Normal Potassium 4.9 mmol/L 3.5-5.3 mmol/L Final [facility]: [address] [facility] Chloride 105 mmol/L 98-110 mmol/L Final [facility]: [address] [facility] Normal Carbon Dioxide 23 mmol/L 20-32 mmol/L Final [facility]: [address] [facility] Calcium 10.0 mg/dL 8.6-10.3 mg/dL Final [facility]: [address] [place] [address] Normal Protein, Total 7.1 g/dL 6.1-8.1 g/dL Final [facility]: [address] [place] [address] Normal Albumin 4.7 g/dL 3.6-5.1 g/dL Final [facility]: [address] Normal Globulin 2.4 g/dL (calc) 1.9-3.7 g/dL (calc) Final [facility]: [address] [place] [address] Normal Albumin/globulin Ratio 2.0 (calc) 1.0-2.5 (calc) Final [facility]: [address] Normal Bilirubin, Total 0.4 mg/dL 0.2-1.2 mg/dL Final [facility]: [address] [place] [address] Normal Alkaline Phosphatase 86 U/L 40-115 U/L Final [facility]: [address] Normal Ast 13 U/L 10-35 U/L Final [facility]: [address] Normal Alt 9 U/L 9-46 U/L Final [facility]: [address] Allergies Code Code System Name Reaction Severity [...] by 07/07/2014 Back Surgery Information not available 01/28/2019 Electrocardiogram [facility] ([facility]) [facility] [address] [place] [address] [address] [place] [address] (Work Place) Vaccine List None recorded. Social History Tobacco Smoking Status Never Smoker Past Encounters 01/28/2019 Pre-surgery Evaluation; Cervical Radiculopathy; Leukocytosis; Body Mass Index 25-29 - Overweight Maggy Jenkins MD: [address] [place] [address], [facility] [address], [place] [address], Ph. 01/06/2019 Type 2 Diabetes Mellitus; Benign Essential Hypertension; Degeneration of Cervical Intervertebral Disc; Insomnia; Body Mass Index 25-29 - Overweight Gurmeet Prince MD: [address] [place] [address], [address], [place] [address], Ph. History of Present Illness Pre-Operative Evaluation Reported By: Patient AMALIA HPI Other: Pre-Operative Evaluation Surgeon Name:; Dr. Cody Sesay. L catarct surgery, February 02, 2019. Risk Factors History of surgical complications? no, Coronary revascularization within 5 years: no. Anesthesia hx: no hx of anesthesia complications, no allergy to anesthetic agents, no family history of anesthesia complications Note:Patient is here for pre-op for cataract surgery that is scheduled for 02/02/19.
Review of Systems Comprehensive General Adult ROS Reported By: Patient Constitutional: Constitutional: no fever, no night sweats, no significant weight loss Eyes: Eyes: no dry eyes, no vision change, no irritation ENMT: Ears: no difficulty hearing, no ear pain. Nose: no nose problems. Mouth/Throat: no sore throat Cardiovascular: Cardiovascular: no chest pain, no palpitations Respiratory: Respiratory: no cough, no wheezing, no shortness of breath Gastrointestinal: Gastrointestinal: no abdominal pain, no nausea, no vomiting Genitourinary: Genitourinary: no difficulty urinating, no hematuria, no increased frequency Musculoskeletal: Musculoskeletal: no muscle aches, no muscle weakness, no arthralgias/joint pain, no back pain, no swelling in the extremities Integumentary: Skin: no rashes Neurologic: Neurologic: no loss of consciousness, no weakness, no numbness, no dizziness, no headaches Psychiatric: Psych: no depression, no sleep disturbances Endocrine: Endocrine: no fatigue Hematologic/Lymphatic: Hematologic/Lymphatic no swollen glands, no bruising, no excessive bleeding Allergic/Immunologic: Allergy/Immunologic: no runny nose, no sinus pressure, no itching, no hives, no frequent sneezing Physical Exam General Adult Exam (male) Reported By: Patient Constitutional: General Appearance: healthy-appearing, well-nourished, well-developed. Level of Distress: NAD. Ambulation: ambulating normally Psychiatric: Mental Status: active and alert, normal mood. Orientation: to time, to place, to person Eyes: Pupils: PERRLA. EOM: EOMI ENMT: Ears: no lesions on external ear, EACs clear, TMs clear, TM mobility normal. Hearing: ; normal hearing. Nose: nasal passages clear. Oropharynx: moist mucous membranes; OP clear Neck: Neck: supple, trachea midline, no masses, FROM. Lymph Nodes: no cervical LAD. Thyroid: no enlargement Lungs: Respiratory effort: no dyspnea. Auscultation: breath sounds normal Cardiovascular: Heart Auscultation: RRR, normal S1, normal S2, no murmurs, no rubs, no gallops Abdomen: Bowel Sounds: normal. Inspection and Palpation: soft, non-distended, no tenderness, no guarding, no rebound tenderness, no masses, no CVA tenderness. Liver: non-tender, no hepatomegaly. Spleen: non-tender Musculoskeletal:: Motor Strength and Tone: normal, normal tone. Joints, Bones, and Muscles: normal movement of all extremities. Extremities: no cyanosis, no edema Neurologic: Gait and Station: normal gait, normal station. Cranial Nerves: grossly intact. Reflexes: DTRs 2+ bilaterally throughout Skin: Inspection and palpation: good turgor Back: Thoracolumbar Appearance: normal curvature
[2019-02-09 14:40] VITALS: BP 108/88
== END | disposition home or self-care (01) ==
LOC: OR 09:58
PROVIDERS: ATTEND Ophthalmology
DX: H25.12 Age-related nuclear cataract, left eye (principal); M54.12 Radiculopathy, cervical region; D72.829 Elevated white blood cell count, unspecified; Z68.27 Body mass index [BMI] 27.0-27.9, adult
CPT/HCPCS: 36415; 66984; 82948; 93005; J2405; J2704; V2632